=== PATIENT | male | born 1990 | race Caucasian/White ===

== ENCOUNTER 2024-02-08 07:51 | Outpatient (OUT) | payer OTHER, SELFPAY ==
[2024-02-08 08:44] LABS: Basophils Absolute Auto 0.1 10^3/uL (0.0-0.1); Basophils Percent Auto 1.4 % (0.2-2.0); Eosinophils Absolute Auto 0.7 10^3/uL (0.0-0.7); Eosinophils Percent Auto 11.1 % (0.9-7.0); Hematocrit 44.2 % (42.0-54.0); Hemoglobin 14.3 g/dL (14.0-18.0); Immature Granulocytes Abs Auto 0.01 10^3/uL (0.00-0.03); Immature Granulocytes Pct Auto 0.2 % (0.0-0.5); Lymphocytes Absolute Auto 1.7 10^3/uL (1.2-3.8); Lymphocytes Percent Auto 25.8 % (20.5-60.0); Mean Corpuscular HGB Conc 32.4 g/dL (29.9-35.2); Mean Corpuscular Hemoglobin 28.9 pg (25.9-34.0); Mean Corpuscular Volume 89.3 fL (80.0-94.0); Monocytes Absolute Auto 0.6 10^3/uL (0.3-0.8); Monocytes Percent Auto 9.5 % (1.7-12.0); Neutrophils Absolute Auto 3.3 10^3/uL (1.4-6.5); Platelet Count 300 10^3/uL (150-450); Red Blood Count 4.95 10^6/uL (4.70-6.10); Red Cell Distribution Width 12.9 % (11.0-15.0); White Blood Count 6.4 10^3/uL (4.0-11.0)
--- NOTE | 2024-02-08 08:50 | PM.PRESUREVA ---
History of Present Illness History of Present Illness Chief complaint: chronic sinusitis Narrative: Patient presents for preadmission testing. The patient reports a long history of nasal congestion with multiple sinus infections. The patient states he has not recently been on any antibiotics. He denies epistaxis, difficulty swallowing, fever, or any other complaints. Review of Systems ROS Narrative REVIEW OF SYSTEMS: Negative except as stated in HPI, ten or more systems reviewed. Constitutional: No fever, chills, weakness ENT: No sore throat or epistaxis Cardiovascular: No edema, chest pain, palpitations, or activity intolerance Respiratory: No shortness of breath, cough, or wheezing Musculoskeletal: No joint pain or swelling Gastrointestinal: Intermittent abdominal pain and diarrhea; no nausea or vomiting Genitourinary: No dysuria or hematuria Neurological: No numbness, tingling, weakness, or headache Psychiatric: No mood changes PFSH PFSH Medical History (Updated 02/08/24 @ 08:25 by Elizabeth Pickett NP) COVID-19 ?U07.1 - COVID-19 (ICD-10) Diarrhea ?R19.7 - Diarrhea, unspecified (ICD-10) Abdominal pain ?R10.9 - Unspecified abdominal pain (ICD-10) Nasal turbinate hypertrophy ?J34.3 - Hypertrophy of nasal turbinates (ICD-10) Chronic maxillary sinusitis ?J32.0 - Chronic maxillary sinusitis (ICD-10) Surgical History (Updated 02/08/24 @ 08:25 by Elizabeth Pickett NP) History of open reduction and internal fixation (ORIF) procedure ?Z98.890 - Other specified postprocedural states (ICD-10) H/O removal of cyst ?Z98.890 - Other specified postprocedural states (ICD-10) Family History (Updated 02/08/24 @ 08:25 by Elizabeth Pickett NP) Other Cancer Social History (Updated 02/08/24 @ 08:22 by Elizabeth Pickett NP) Within the past year, how often did you have a drink containing alcohol: monthly or less Smoking status: Former smoker Non-prescribed substance use: denies use Previous occupational history: [employer] Highest level of school completed/degree received: high school graduate Meds Home Medications and Allergies Home Medications ?Medication ?Instructions ?Recorded ?Confirmed ?Type dicyclomine 20 mg tablet 20 mg PO TID PRN abdominal pain 02/08/24 02/08/24 History Allergies Allergy/AdvReac Type Severity Reaction Status Date / Time No Known Drug Allergies Allergy Verified 02/08/24 08:20 Exam Narrative Exam Narrative: Constitutional: Awake, alert, comfortable, well-appearing, nontoxic, interactive, vital signs as charted Head: Normocephalic, atraumatic Eyes: Conjunctiva and lids normal to inspection, pupils normal ENT: Tympanic membranes pearly matthew, nonerythematous, noninjected, bilateral nasal turbinate hypertrophy, posterior oropharynx clear, oral mucosa moist Neck: Supple, normal appearance, normal range of motion, no meningeal signs, no lymphadenopathy Respiratory: No respiratory distress, breath sounds clear Cardiovascular: Regular rate and rhythm, strong and regular heart tones Musculoskeletal: Normal gait, no swelling or edema Skin: No rashes or induration, no lesions, only visible skin inspected Neuro: No neurological deficits, normal sensation Psychiatric: Oriented ?3, normal affect Assessment and Plan Assessment and Plan (1) Chronic maxillary sinusitis: (2) Nasal turbinate hypertrophy: Plan Bilateral maxillary antrostomy, bilateral inferior turbinate submucosal resection scheduled with Dr. Johnson February 15, 2024.
[2024-02-08 08:56] LABS: Partial Thromboplastin Time 28.8 sec (22.3-36.2); Prothrombin Time 9.8 sec (9.0-11.6)
[2024-02-08 09:03] LABS: INR <0.93
== END 2024-02-08 07:52 | disposition home or self-care (01) ==
LOC: PST 07:53
PROVIDERS: PCP Family Medicine; Visit Provider Otolaryngology
DX: Z01.812 Encounter for preprocedural laboratory examination (principal); Z01.818 Encounter for other preprocedural examination; J32.0 Chronic maxillary sinusitis; J34.3 Hypertrophy of nasal turbinates
CPT/HCPCS: 85025; 85610; 85730; G0463

== ENCOUNTER 2024-02-15 06:53 | Day surgery (SDC) | payer OTHER, SELFPAY ==
[2024-02-08 08:49] VITALS: BP 131/80; PULSE 67; TEMP 36.4; O2SAT 99; BMI 24.7
--- NOTE | 2024-02-15 | OP_ITS ---
OPERATION DATE: 02/15/2024 SURGEON: Marcia Johnson M.D. PREOPERATIVE DIAGNOSIS: Chronic maxillary sinusitis and bilateral inferior turbinate hypertrophy. POSTOPERATIVE DIAGNOSIS: Chronic maxillary sinusitis and bilateral inferior turbinate hypertrophy plus deviated nasal septum. PROCEDURE: Septoplasty, bilateral maxillary antrostomy and bilateral inferior turbinate submucosa resection. ANESTHESIA: General endotracheal. COMPLICATIONS: None. FINDINGS: A posterior deviated nasal septum to the right obstructing access to the right maxillary sinus. Bilateral inferior turbinate hypertrophy. INDICATIONS: This 33-year-old man present with a chronic nasal obstruction and maxillary sinusitis unresponsive to aggressive medical management. PROCEDURE: Patient identified in the holding area and taken back to the OR where he was placed in a supine position. After induction of general endotracheal anesthesia, the table was turned, the head elevated 20 degrees and the face draped in a sterile fashion. Afrin soaked pledgets were placed in each side of the nose and, after waiting adequate time for decongestion, the nose was copiously irrigated bilaterally. Attention was then turned to the right nose. The nose was examined with the nasal endoscope and it was clear that there was obstruction preventing access to the sinuses. Therefore, a decision was made that the patient would need a septoplasty in order to proceed with the procedure. Attention was then turned to the left nose. The nose was approached with the nasal endoscope, and lidocaine 1% with 1:100,000 epinephrine injected into the middle turbinate and lateral nasal wall, as well as the nasal septum bilaterally. After waiting adequate time for hemostasis, the left side was re- approached with the nasal endoscope. A curved scissor to the right was used to incise the inferior portion of the middle turbinate and this was then removed with an ethmoid forcep. The uncinate process was then incised with a sickle knife and removed with an ethmoid forcep. The natural ostium of the maxillary sinus was identified with the Brenda seeker, and opened posteriorly with the straight cutting forcep and inferiorly with the back biting forcep. The left inferior turbinate was then infected with lidocaine 1% with 1:100,000 epinephrine. Attention was then turned to the nasal septum. A left sided Osbaldo incision was made and a mucoperichondrial and mucoperiosteal flap was elevated on the left hand side. The bony cartilaginous septum was and a mucoperiosteal flap was elevated on the right hand side. The bony deviated septum was then removed, until there was good access to the left maxillary sinus. Once this was completed, the attention was turned to the right sinuses and the middle turbinate and the lateral nasal wall were injected with lidocaine 1% with 1:100,000 epinephrine. After waiting adequate time for hemostasis, maxillary antrostomy proceeded on the right, the same as it had on the left. Then the right inferior turbinate was injected with lidocaine 1% with 1:100,000 epinephrine. Attention was then turned to the left inferior turbinate. A stab incision was made anteriorly. A caudal elevator was used to create a tunnel along the medial surface of the turbinate bone. A 2.5 mm microdebrider blade was used to exenterate the submucosal tissues of the turbinate, and the turbinate was then outfractured with the long nasal speculum. Attention was turned to the right inferior turbinate, and the same procedure performed. Once this was accomplished, the nasal septal flap was copiously irrigated, and the [place] incision closed with 5-0 chromic suture. Both sides of the nose were then copiously irrigated, and bilateral ventilating silastic splints were coated with antibiotic ointment, placed in the nose and sutured in place using a 2-0 nylon transseptal stitch. The patient was then awakened and taken to the recovery room in good condition. . ELIEZER
[2024-02-15 07:05] VITALS: BP 129/78; PULSE 83; TEMP 36.1; O2SAT 97; BMI 24.2
[2024-02-15] MEDS: LACTATED RINGER'S SOLUTION 1,000 ML 50 ML IV (07:34)
[2024-02-15] MEDS: OXYMETAZOLINE HCL 0.05% NASAL SPRAY 30 SPRAY NS (08:50)
[2024-02-15] MEDS: BACITRACIN OINTMENT 28.4 GM TUBE 1 APPLIC TOPICAL (09:40)
[2024-02-15] MEDS: LIDOCAINE HCL 1%-EPINEPHRINE 1:100,000 20 ML MDV INJ (09:40)
[2024-02-15 10:07] VITALS: BP 129/79; PULSE 81; TEMP 36.1; O2SAT 96
[2024-02-15 10:37] VITALS: BP 127/91; PULSE 79; O2SAT 100
[2024-02-15 11:07] VITALS: BP 133/82; PULSE 74; O2SAT 97
[2024-02-15] MEDS: ACETAMINOPHEN 300 MG/ 30 MG CODEINE TABLET 1 TAB PO (11:33)
[2024-02-15 11:37] VITALS: BP 128/87; PULSE 79; O2SAT 97
== END 2024-02-15 11:40 | disposition home or self-care (01) ==
PROVIDERS: PCP Family Medicine; Visit Provider Otolaryngology
PROC: (CPT 160; principal; 2024-02-15 08:00)
DX: J32.0 Chronic maxillary sinusitis (principal); J34.3 Hypertrophy of nasal turbinates; J34.2 Deviated nasal septum; Z87.891 Personal history of nicotine dependence
CPT/HCPCS: 30140; 30520; 31256; 36415; 88304; 88305; 88311; J0131; J1100; J2250; J2371; J2405; J2704; J3010